=== PATIENT | male | born 1980 | race American Indian/Alaskan Native ===

== ENCOUNTER 2019-01-08 17:57 | Emergency (ER) | payer BC ==
[2019-01-08] MEDS ORDERED: FLEXERIL PO STA (18:04)
[2019-01-08] MEDS ORDERED: NORCO 5/325 PO STA (18:04)
--- NOTE | 2019-01-08 18:05 | Emergency Department Report ---
Blank Doc - Documentation Documentation: This patient was seen by Dr. Hastings. I am not the author of Marc Sims <SWAPNIL LIGHT - Last Filed: 02/11/19 00:02> - Documentation Documentation: Pt not seen by Dr Hastings <OLMAN HASTINGS - Last Filed: 02/12/19 16:02>
[2019-01-08] MEDS ORDERED: NORCO 5/325 ONE (18:07)
[2019-01-08] MEDS ORDERED: FLEXERIL ONE (18:07)
--- NOTE | 2019-01-08 18:10 | Emergency Department Report ---
ED Back Pain/Injury HPI - General Chief Complaint: Back Pain/Injury Stated Complaint: BACK/HIP PAIN Time Seen by Provider: 01/08/19 18:04 Source: patient Limitations: No Limitations - History of Present Illness MD Complaint: back pain (WAS MOVING A COUCH AND FELT SEVERE PAIN TO LOWER BACK RADIATING ACROSS THE LUMBAR REGION) Similar Symptoms Previously: No Place: home Radiation: buttocks, left leg Severity: moderate, severe Quality: sharp, tingling Improves With: none Worsens With: movement, sitting upright, walking Context: while lifting Associated Symptoms: difficulty walking. denies: numbness, difficulty urinating, incontinence, fever/chills, constipation, headaches, abdominal pain, loss of appetite, nausea/vomiting, rash, seizure, syncope - Related Data Previous Rx's Medication Instructions Recorded Last Taken Type Butalb/Acetamin/Caff 50-325-40 2 tab PO Q8HR PRN #20 tablet 06/19/18 Unknown Rx [Fioricet] Dextran 70/Hypromellose 1 each OP TID PRN #10 ml 06/19/18 Unknown Rx [Artificial Tears] Polymyxin B Sulf/Trimethoprim 1 drop OD Q3H #10 ml 06/19/18 Unknown Rx [Polytrim Eye Drops] valACYclovir [Valtrex] 1,000 mg PO TID #21 tab 06/19/18 Unknown Rx methOCARBAMOL [Robaxin] 750 mg PO Q8H PRN #21 tablet 01/08/19 Unknown Rx predniSONE [Deltasone] 50 mg PO QDAY #5 tab 01/08/19 Unknown Rx traMADol [Ultram] 50 mg PO Q6HR PRN #20 tablet 01/08/19 Unknown Rx Allergies Allergy/AdvReac Type Severity Reaction Status Date / Time No Known Allergies Allergy Verified 01/08/19 18:07 ED Review of Systems ROS: Stated complaint: BACK/HIP PAIN Other details as noted in HPI Constitutional: denies: chills, fever Eyes: denies: eye pain, eye discharge, vision change ENT: denies: ear pain, throat pain Respiratory: denies: cough, shortness of breath, wheezing Cardiovascular: denies: chest pain, palpitations Endocrine: no symptoms reported Gastrointestinal: denies: abdominal pain, nausea, diarrhea Genitourinary: denies: urgency, dysuria, frequency, hematuria Musculoskeletal: back pain. denies: joint swelling, arthralgia Skin: denies: rash, lesions Neurological: other (NO URINARY SYMPTOMS). denies: headache, weakness, paresthesias Psychiatric: denies: anxiety, depression Hematological/Lymphatic: denies: easy bleeding, easy bruising ED Past Medical Hx - Past Medical History Hx Asthma: Yes Additional medical history: Horatio Palsy - Social History Smoking Status: Current Every Day Smoker (1/3 pack per day) Substance Use Type: Marijuana - Medications Home Medications: Home Medications Medication Instructions Recorded Confirmed Last Taken Type Butalb/Acetamin/Caff 50-325-40 2 tab PO Q8HR PRN #20 tablet 06/19/18 Unknown Rx [Fioricet] Dextran 70/Hypromellose 1 each OP TID PRN #10 ml 06/19/18 Unknown Rx [Artificial Tears] Polymyxin B Sulf/Trimethoprim 1 drop OD Q3H #10 ml 06/19/18 Unknown Rx [Polytrim Eye Drops] valACYclovir [Valtrex] 1,000 mg PO TID #21 tab 06/19/18 Unknown Rx methOCARBAMOL [Robaxin] 750 mg PO Q8H PRN #21 tablet 01/08/19 Unknown Rx predniSONE [Deltasone] 50 mg PO QDAY #5 tab 01/08/19 Unknown Rx traMADol [Ultram] 50 mg PO Q6HR PRN #20 tablet 01/08/19 Unknown Rx ED Physical Exam - General Limitations: No Limitations General appearance: alert, in no apparent distress - Head Head exam: Present: atraumatic, normocephalic - Eye Eye exam: Present: normal appearance, PERRL, EOMI Pupils: Present: normal accommodation - ENT ENT exam: Present: normal exam, normal orophraynx, mucous membranes moist - Neck Neck exam: Present: normal inspection - Respiratory Respiratory exam: Present: normal lung sounds bilaterally. Absent: respiratory distress - Cardiovascular Cardiovascular Exam: Present: regular rate, normal rhythm. Absent: systolic murmur, diastolic murmur, rubs, gallop - GI/Abdominal GI/Abdominal exam: Present: soft, normal bowel sounds - Rectal Rectal exam: Present: deferred - Extremities Exam Extremities exam: Present: normal inspection - Back Exam Back exam: Present: normal inspection, tenderness, paraspinal tenderness, other (TENDER TO LEFT SI JOINT. PAIN WITH SEATED SLR. ). Absent: CVA tenderness (R), CVA tenderness (L) - Neurological Exam Neurological exam: Present: alert, oriented X3, CN II-XII intact - Psychiatric Psychiatric exam: Present: normal affect, normal mood. Absent: manic, homicidal ideation - Skin Skin exam: Present: warm, dry, intact, normal color. Absent: rash Critical care attestation.: If time is entered above; I have spent that time in minutes in the direct care of this critically ill patient, excluding procedure time. ED Disposition Clinical Impression: Lumbago with sciatica, left side Disposition: DC-01 TO HOME OR SELFCARE Is pt being admited?: No Does the pt Need Aspirin: No Condition: Stable Instructions: Lumbar Radiculopathy (ED) Referrals: GANESH WICK MD [Staff Physician] - 3-5 Days
[2019-01-08 18:16] VITALS: BP 115/41
== END 2019-01-08 18:21 | disposition home or self-care (01) ==
LOC: ED 17:57
DX: M54.42 Lumbago with sciatica, left side (principal); J45.909 Unspecified asthma, uncomplicated; F17.210 Nicotine dependence, cigarettes, uncomplicated; F12.90 Cannabis use, unspecified, uncomplicated; Z79.899 Other long term (current) drug therapy
CPT/HCPCS: 99281